=== PATIENT | female | born 1950 | race Two or more races ===

== ENCOUNTER 2018-06-04 15:26 | Emergency (ER) | payer MEDICARE, OTHER ==
[~2018-06-04] VITALS: Ht 152.4 cm; Wt 73.0 kg
[~2018-06-04 15:26] MED LIST: AMLO10TA4 PO; CLON0.5T PO; ESOM20CA PO; SEPTRA; SULF1TAB23 PO
--- NOTE | 2018-06-04 15:57 | RAD ---
EXAM: AP View of the chest DATE: 06/04/2018 3:37 PM INDICATION: chest pain, URI, shortness of breath COMPARISON: No Prior FINDINGS: Mild eventration right hemidiaphragm. The heart is top normal in size. Mediastinal and hilar contours are normal. No focal parenchymal airspace opacity. No pleural effusion or pneumothorax. Cholecystectomy clips are seen IMPRESSION: No radiographic evidence for acute cardiac pulmonary process. Electronically signed by: Ramin Jackson MD (06/04/2018 3:52 PM) [facility]
[2018-06-04] MEDS ORDERED: FAMOTIDINE 20 MG/2 ML VIAL IVP ONE (16:00)
[2018-06-04 16:05] LABS: BASO # 0.1 x10^3/uL (0.0-0.2); BASO % 1 % (0-3); EOS % 0 % (0-3); HEMATOCRIT 49.8 % (36.0-47.0); HEMOGLOBIN 17.1 g/dL (12.0-15.5); LYMPH # 3.5 x10^3/uL (1.0-4.8); LYMPH % 46 % (24-48); MEAN CORPUSCULAR HEMOGLOBIN 31 pg (25-35); MEAN CORPUSCULAR HGB CONC 34 g/dL (31-37); MEAN CORPUSCULAR VOLUME 89 fL (79-100); MONO # 0.7 x10^3/uL (0.0-1.1); MONO % 9 % (0-9); NEUT # 3.4 x10^3uL (1.8-7.7); NEUT % 44 % (31-73); PLATELET COUNT 265 x10^3/uL (140-400); RED BLOOD COUNT 5.61 x10^6/uL (3.50-5.40); RED CELL DISTRIBUTION WIDTH 12.8 % (11.5-14.5); WHITE BLOOD COUNT 7.6 x10^3/uL (4.0-11.0)
[2018-06-04 16:20] LABS: ALBUMIN 3.3 g/dL (3.4-5.0); ALBUMIN/GLOBULIN RATIO 0.7 (1.0-1.7); CALCIUM 9.4 mg/dL (8.5-10.1); CREATININE 0.9 mg/dL (0.6-1.0); GFR 62.1; POTASSIUM 3.4 mmol/L (3.5-5.1); TOTAL BILIRUBIN 0.6 mg/dL (0.2-1.0); TOTAL PROTEIN 7.8 g/dL (6.4-8.2)
[2018-06-04 16:23] LABS: INFLUENZA A PATIENT NEGATIVE (NEGATIVE); INFLUENZA B PATIENT NEGATIVE (NEGATIVE)
[2018-06-04 16:25] LABS: MONONUCLEOSIS PATIENT NEGATIVE (NEGATIVE)
--- NOTE | 2018-06-04 17:35 | ED.ADGEN ---
Past History Past Medical History: Anxiety, Hypertension Past Surgical History: Cholecystectomy, Other Smoking: Non-smoker Alcohol Use: None Drug Use: None Adult General Chief Complaint Chief Complaint Chest pain, fatigue, sore throat HPI HPI Patient is a 68-year-old female who presents with nondescript chest pain, worse with deep breathing, sore throat, and fatigue. Symptom onset was last evening gradually with gradual progression throughout today. No fever chills, nausea vomiting or sweats. No urinary frequency urgency, flank pain. Flulike symptoms 1 week ago which fully her improved. No history of CAD, CHF, DVT or PE. No other acute symptoms or complaints.[] Review of Systems Review of Systems Review symptoms as per history of present illness. All other review symptoms are negative. Back there All other systems were reviewed and found to be within normal limits, except as documented in this note. Current Medications Current Medications Current Medications Medications (Trade) Dose Ordered Sig/Zeferino Start Time Stop Time Status Last Admin Dose Admin Doxycycline Hyclate (Vibra-Tab) 100 mg 1X ONCE 06/04/18 19:00 06/04/18 19:01 DC 06/04/18 18:47 100 MG Famotidine (Pepcid Vial) 20 mg 1X ONCE 06/04/18 16:00 06/04/18 16:01 DC 06/04/18 15:55 20 MG Allergies Allergies Allergies Coded Allergies Type Severity Reaction Last Updated Verified Penicillins Allergy Unknown 06/15/14 Yes diphenhydramine HCl Allergy Unknown 06/15/14 Yes iodine Allergy Unknown 06/15/14 Yes promethazine Allergy Unknown 06/04/18 Yes sertraline Allergy Unknown 06/04/18 Yes sulfamethoxazole Allergy Unknown 06/04/18 Yes trimethoprim Allergy Unknown 06/04/18 Yes Uncoded Allergies Type Severity Reaction Last Updated Verified IV CONTRAST Allergy Unknown 06/09/14 Physical Exam Physical Exam Constitutional: Alley fatigued and weak appearing.. [] HENT: Normocephalic, atraumatic, bilateral external ears normal, oropharynx moist, no oral exudates, nose normal. [] Eyes: PERRLA, EOMI, conjunctiva normal, no discharge. [] Neck: Normal range of motion, no tenderness, supple, no stridor. [] Cardiovascular:Heart rate regular rhythm, no murmur [] Lungs & Thorax: Bilateral breath sounds clear to auscultation, coarse breath sounds bilaterally [] Abdomen: Bowel sounds normal, soft, mild epigastric pain, tenderness, no rebound rigidity or guarding.[] Skin: Warm, dry. [] Back: No tenderness, no CVA tenderness. [] Extremities: No tenderness, no cyanosis, no clubbing, ROM intact, no edema. [] Neurologic: Alert and oriented X 3, normal motor function, normal sensory function, no focal deficits noted. [] Psychologic: Affect normal, judgement normal, mood normal. [] Current Patient Data Vital Signs Vital Signs Date Time Temp Pulse Resp B/P (MAP) Pulse Ox O2 Delivery O2 Flow Rate FiO2 06/04/18 18:25 59 18 131/77 (95) 98 Room Air 06/04/18 15:40 98.3 Lab Results Laboratory Tests Test 06/04/18 15:37 06/04/18 15:47 06/04/18 17:35 Heterophil Agglutinins Negative (NEGATIVE) White Blood Count 7.6 x10^3/uL (4.0-11.0) Red Blood Count 5.61 x10^6/uL (3.50-5.40) H Hemoglobin 17.1 g/dL (12.0-15.5) H Hematocrit 49.8 % (36.0-47.0) H Mean Corpuscular Volume 89 fL (79-100) Mean Corpuscular Hemoglobin 31 pg (25-35) Mean Corpuscular Hemoglobin Concent 34 g/dL (31-37) Red Cell Distribution Width 12.8 % (11.5-14.5) Platelet Count 265 x10^3/uL (140-400) Neutrophils (%) (Auto) 44 % (31-73) Lymphocytes (%) (Auto) 46 % (24-48) Monocytes (%) (Auto) 9 % (0-9) Eosinophils (%) (Auto) 0 % (0-3) Basophils (%) (Auto) 1 % (0-3) Neutrophils # (Auto) 3.4 x10^3uL (1.8-7.7) Lymphocytes # (Auto) 3.5 x10^3/uL (1.0-4.8) Monocytes # (Auto) 0.7 x10^3/uL (0.0-1.1) Eosinophils # (Auto) 0.0 x10^3/uL (0.0-0.7) Basophils # (Auto) 0.1 x10^3/uL (0.0-0.2) Sodium Level 135 mmol/L (136-145) L Potassium Level 3.4 mmol/L (3.5-5.1) L Chloride Level 98 mmol/L (98-107) Carbon Dioxide Level 29 mmol/L (21-32) Anion Gap 8 (6-14) Blood Urea Nitrogen 17 mg/dL (7-20) Creatinine 0.9 mg/dL (0.6-1.0) Estimated GFR (Cockcroft-Gault) 62.1 BUN/Creatinine Ratio 19 (6-20) Glucose Level 105 mg/dL (70-99) H Calcium Level 9.4 mg/dL (8.5-10.1) Total Bilirubin 0.6 mg/dL (0.2-1.0) Aspartate Amino Transferase (AST) 43 U/L (15-37) H Alanine Aminotransferase (ALT) 100 U/L (14-59) H Alkaline Phosphatase 125 U/L (46-116) H Troponin I Quantitative < 0.017 ng/mL (0-0.055) Total Protein 7.8 g/dL (6.4-8.2) Albumin 3.3 g/dL (3.4-5.0) L Albumin/Globulin Ratio 0.7 (1.0-1.7) L Lipase 368 U/L (73-393) Thyroid Stimulating Hormone (TSH) 1.185 uIU/mL (0.358-3.740) Ethyl Alcohol Level < 10 mg/dL (0-10) Influenza Type A (Rapid) Negative (NEGATIVE) Influenza Type B (Rapid) Negative (NEGATIVE) Urine Collection Type Unknown Urine Color Yellow Urine Clarity Clear Urine pH 6.5 Urine Specific Merrill 1.010 Urine Protein Neg (NEG-TRACE) Urine Glucose (UA) Neg mg/dL (NEG) Urine Ketones (Stick) 15 mg/dL (NEG) Urine Blood Mod (NEG) Urine Nitrite Neg (NEG) Urine Bilirubin Neg (NEG) Urine Urobilinogen Dipstick 0.2 mg/dL (0.2 mg/dL) Urine Leukocyte Esterase Neg (NEG) Urine RBC 3-5 /HPF (0-2) Urine WBC Occ /HPF (0-4) Urine Squamous Epithelial Cells Many /LPF Urine Bacteria 0 /HPF (0-FEW) EKG EKG [EKG: Sinus rhythm, nonspecific ST-T wave changes.] Radiology/Procedures Radiology/Procedures [Chest x-ray: No acute cardiopulmonary disease per radiology report] Course & Med Decision Making Course & Med Decision Making Pertinent Labs and Imaging studies reviewed. (See chart for details) [Nondescript chest pain, sore throat, symptoms reproduce on exam. ] Final Impression Final Impression []1. acute bronchitis Dragrio Disclaimer Dragon Disclaimer This electronic medical record was generated, in whole or in part, using a voice recognition dictation system. PPIER SEXTON DO Jun 04, 2018 17:35
--- NOTE | 2018-06-04 18:15 | EKG ---
[address] [address] Test Date: 2018-06-04 Test Time: 15:39:17 Pat Name: HECTOR LOMAS Department: Room: Gender: F Service Desk Analyst: : [id number] Requested By: PIPER SEXTON Order Number: [id number] Reading MD: Measurements Intervals [place] Rate: 71 P: 34 VT: 132 QRS: 2 QRSD: 80 T: 33 QT: 418 QTc: 454 Interpretive Statements SINUS RHYTHM QRS(T) CONTOUR ABNORMALITY CONSIDER ANTEROLATERAL MYOCARDIAL DAMAGE POSSIBLY ABNORMAL ECG RI6.01 Unconfirmed report No previous ECG available for comparison
[2018-06-04 18:25] VITALS: BP 131/77
[2018-06-04] MEDS ORDERED: DOXY100C2 PO (18:36)
[2018-06-04 18:39] LABS: BACTERIA,URINE 0 /HPF (0-FEW); BILIRUBIN,URINE NEG (NEG); CLARITY,URINE CLEAR; COLOR,URINE YELLOW; GLUCOSE,URINE NEG (NEG); NITRITE,URINE NEG (NEG); SQUAMOUS EPITHELIAL CELL,UR MANY /LPF; UROBILINOGEN,URINE 0.2 mg/dL (0.2 mg/dL); WBC,URINE OCC /HPF (0-4)
[2018-06-04] MEDS ORDERED: DOXYCYCLINE HYCLATE 100 MG TABLET PO ONE (19:00)
== END 2018-06-04 18:48 | disposition home or self-care (01) ==
LOC: ER 15:26
DX: J20.9 Acute bronchitis, unspecified (principal); F41.9 Anxiety disorder, unspecified; I10 Essential (primary) hypertension; Z88.0 Allergy status to penicillin; Z91.041 Radiographic dye allergy status; Z88.8 Allergy status to other drugs, medicaments and biological substances; Z88.1 Allergy status to other antibiotic agents
CPT/HCPCS: 36415; 71045; 80053; 81001; 83690; 84443; 84484; 85025; 86308; 87804; 93005; 96374; 99284; G0480; J3490

== ENCOUNTER → 2018-07-30 | Outpatient (CLI) | payer MEDICARE, OTHER ==
[~2018-07-30] MED LIST changes: +DOXY100C2 PO
--- NOTE | 2018-07-30 15:16 | RAD ---
EXAM: Head and cervical spine CT without contrast. HISTORY: Headache. Dizziness. TECHNIQUE: Computed tomographic images of the head and cervical spine were obtained without contrast. *One or more of the following individualized dose reduction techniques were utilized for this examination: 1. Automated exposure control. 2. Adjustment of the mA and/or kV according to patient size. 3. Use of iterative reconstruction technique. COMPARISON: None. FINDINGS: Head: There is no hemorrhage. There is no mass effect or midline shift. There is no hydrocephalus. There are subtle areas of hypodensity within the cerebral white matter, likely due to chronic small vessel disease. There is mild age-appropriate cerebral volume loss. There is maxillary sinus mucosal thickening and a possible tiny left maxillary sinus air-fluid level, partially included on the [id number]. The mastoid air cells are clear. No calvarial lesion is seen. Cervical spine: There is mild cervical kyphosis. There is mild anterolisthesis of C7 on T1 and T1 on T2 and minimal retrolisthesis of C3 on C4. There is degenerative endplate remodeling with disc space narrowing and osteophytosis primarily at C5-C6. No suspicious osseous lesion is seen. There are few benign bone islands. There is no fracture. At C2-C3, there is no stenosis. At C3-C4, there is a shallow posterior central to left paracentral disc protrusion superimposed on a disc bulge. There is minimal facet arthropathy. There is minimal left foraminal stenosis. At C4-C5, there is a shallow left paracentral disc protrusion superimposed on a disc bulge and left posterior lateral predominant endplate remodeling. There is no stenosis. At C5-C6, there is a disc bulge and endplate osteophytosis. There is mild bilateral facet arthropathy. There is left uncovertebral therapy. There is mild left foraminal stenosis. At C6-C7, there is mild left greater than right facet arthropathy. There is no stenosis. IMPRESSION: 1. No acute intracranial finding or evidence of acute cervical spine trauma. 2. Multilevel degenerative change within the cervical spine, described above. Electronically signed by: Lisandra Cummins MD (07/30/2018 3:12 PM) [place] [id number]
== END | disposition home or self-care (01) ==
LOC: CT 14:45
PROVIDERS: ATTEND Family Medicine
DX: M47.892 Other spondylosis, cervical region (principal); M12.88 Other specific arthropathies, not elsewhere classified, other specified site; M48.02 Spinal stenosis, cervical region; M50.21 Other cervical disc displacement, high cervical region; M40.292 Other kyphosis, cervical region; R90.82 White matter disease, unspecified
CPT/HCPCS: 70450; 72125

== ENCOUNTER 2019-03-29 09:10 | Emergency (ER) | payer MEDICARE, OTHER ==
[~2019-03-29] VITALS: Ht 152.4 cm; Wt 73.0 kg
[2019-03-29 09:10] VITALS: BP 159/80
--- NOTE | 2019-03-29 09:50 | PHYS DOC ---
Past History Past Medical History: Anxiety, Hypertension Past Surgical History: Cholecystectomy Smoking: Non-smoker Alcohol Use: None Drug Use: None Adult General Chief Complaint Chief Complaint: EARACHE/EAR PAIN HPI HPI 69-year-old female presents with right ear pain. She states that this pain started yesterday. It is intermittent and is a sharp sensation. It comes and goes with no particular pattern. She has tried Mucinex at home but it does not help. She does have some nasal congestion. She denies trauma. No fever or chills. She has no other complaints this time. Review of Systems Review of Systems Constitutional: Denies fever or chills [] Eyes: Denies change in visual acuity, redness, or eye pain [] HENT: Denies nasal congestion or sore throat. Right ear pain [] Respiratory: Denies cough or shortness of breath [] Cardiovascular: No additional information not addressed in HPI [] GI: Denies abdominal pain, nausea, vomiting, bloody stools or diarrhea [] : Denies dysuria or hematuria [] Musculoskeletal: Denies back pain or joint pain [] Integument: Denies rash or skin lesions [] Neurologic: Denies headache, focal weakness or sensory changes [] Endocrine: Denies polyuria or polydipsia [] All other systems were reviewed and found to be within normal limits, except as documented in this note. Allergies Allergies Allergies Coded Allergies Type Severity Reaction Last Updated Verified Penicillins Allergy Unknown 06/15/14 Yes diphenhydramine HCl Allergy Unknown 06/15/14 Yes iodine Allergy Unknown 06/15/14 Yes promethazine Allergy Unknown 06/04/18 Yes sertraline Allergy Unknown 06/04/18 Yes sulfamethoxazole Allergy Unknown 06/04/18 Yes trimethoprim Allergy Unknown 06/04/18 Yes Uncoded Allergies Type Severity Reaction Last Updated Verified IV CONTRAST Allergy Unknown 06/09/14 Physical Exam Physical Exam Constitutional: Well developed, well nourished, no acute distress, non-toxic appearance. [] HENT: Normocephalic, atraumatic, bilateral external ears normal, oropharynx moist, no oral exudates, nose normal. Bilateral tympanic membranes normal.[] Eyes: PERRLA, EOMI, conjunctiva normal, no discharge. [] Neck: Normal range of motion, no tenderness, supple, no stridor. [] Cardiovascular:Heart rate regular rhythm, no murmur [] Lungs & Thorax: Bilateral breath sounds clear to auscultation [] Abdomen: Bowel sounds normal, soft, no tenderness, no masses, no pulsatile masses. [] Skin: Warm, dry, no erythema, no rash. [] Back: No tenderness, no CVA tenderness. [] Extremities: No tenderness, no cyanosis, no clubbing, ROM intact, no edema. [] Neurologic: Alert and oriented X 3, normal motor function, normal sensory function, no focal deficits noted. [] Psychologic: Affect normal, judgement normal, mood normal. [] Current Patient Data Vital Signs Vital Signs Date Time Temp Pulse Resp B/P (MAP) Pulse Ox O2 Delivery O2 Flow Rate FiO2 03/29/19 09:10 98.7 85 18 98 Room Air EKG EKG [] Radiology/Procedures Radiology/Procedures [] Course & Med Decision Making Course & Med Decision Making Pertinent Labs and Imaging studies reviewed. (See chart for details) The patient's exam is unremarkable. It is possible she is getting congestion blocking her eustachian tube and that this pressure is causing her discomfort. I have advised that she start Mucinex D or try allergy medication such as cetirizine. She will try these follow-up with her primary care physician. She is stable for discharge at this time. [] Dragon Disclaimer Dragon Disclaimer This electronic medical record was generated, in whole or in part, using a voice recognition dictation system. Departure Departure: Impression: Primary Impression: Right ear pain Additional Impression: Nasal congestion Disposition: 01 HOME, SELF-CARE Condition: STABLE Referrals: REX BERMUDEZ MD (PCP) Patient Instructions: Upper Respiratory Infection, Adult, [id number] Additional Instructions: You can try Mucinex D for your congestion OR try Cetirizine 10mg daily. You should try these one at a time to see if they work. Do not take them both unless directed to by your primary physician. Problem Qualifiers PIPER CARDENAS DO Mar 29, 2019 09:49
== END 2019-03-29 10:00 | disposition home or self-care (01) ==
LOC: ER 09:10
DX: H92.01 Otalgia, right ear (principal); R09.81 Nasal congestion; F41.9 Anxiety disorder, unspecified; I10 Essential (primary) hypertension; Z88.0 Allergy status to penicillin; Z88.8 Allergy status to other drugs, medicaments and biological substances; Z88.1 Allergy status to other antibiotic agents
CPT/HCPCS: 99281